=== PATIENT | male | born 1990 | race Caucasian/White ===

== ENCOUNTER 2016-11-28 20:51 | Emergency (ER) | payer OTHER ==
[~2016-11-28] VITALS: Ht 177.8 cm; Wt 65.6 kg
[2016-11-28 20:52] VITALS: BP 123/80
== END 2016-11-28 23:38 | disposition left against medical advice (07) ==
LOC: M ED 22:03
DX: S69.90XA Unspecified injury of unspecified wrist, hand and finger(s), initial encounter (principal); Z53.21 Procedure and treatment not carried out due to patient leaving prior to being seen by health care provider

== ENCOUNTER → 2019-02-25 | Outpatient (CLI) | payer OTHER ==
--- NOTE | 2019-02-25 19:16 | REP ---
Wrist series: Four views. History: Injury. Findings: Four views of the right wrist show mild soft tissue swelling dorsally over the carpus. No fracture or subluxation is seen. Impression: No fracture noted. Electronically Signed by Eben Serrano MD 02/25/2019 07:08 P
--- NOTE | 2019-02-25 19:17 | REP ---
Right elbow series: Four views. History: Injury. Findings: Four views right elbow show no evidence of fracture, subluxation or joint effusion. Impression: Negative right elbow radiographs. Electronically Signed by Eben Serrano MD 02/25/2019 07:09 P
== END ==
LOC: M WUC 18:14
PROVIDERS: ATTEND Physician Assistant
DX: M25.521 Pain in right elbow (principal); M25.531 Pain in right wrist

== ENCOUNTER 2019-10-27 21:03 | Emergency (ER) | payer OTHER ==
[~2019-10-27] VITALS: Ht 180.3 cm; Wt 68.5 kg
[2019-10-27 21:04] VITALS: BP 146/83
[2019-10-27] MEDS ORDERED: LIDOCAINE 1% MDV 20ML VIAL IM ONE (21:30)
[2019-10-27] MEDS ORDERED: BOOSTRIX/ADACEL VACCINE (DIPHTH/PERTUSS/ACELL/TETANUS) 0.5ML SYR IM ONE (21:30)
== END 2019-10-27 22:07 | disposition home or self-care (01) ==
LOC: M ED 21:03
DX: S61.211A Laceration without foreign body of left index finger without damage to nail, initial encounter (principal); W26.8XXA Contact with other sharp object(s), not elsewhere classified, initial encounter; Y92.018 Other place in single-family (private) house as the place of occurrence of the external cause; F17.210 Nicotine dependence, cigarettes, uncomplicated